=== PATIENT | male | born 1940 | race Caucasian/White ===

== ENCOUNTER 2017-10-18 15:18 | Inpatient (IN) ==
--- NOTE | 2017-10-18 16:14 | XRay Report ---
Indication: SOA, low SpO2 PROCEDURE: XR chest 1V: Encounter: Initial Comparison: Radiographs from earlier today at 1342 Findings: Pulmonary edema is again noted with interstitial prominence and small bilateral pleural effusions. Hazy bilateral mid to lower lung zone infiltrates are again noted without significant change. No pneumothorax. Cardiac silhouette remains enlarged but unchanged. Mediastinal contours are stable. Left pacemaker and prior CABG. Impression: Moderate pulmonary edema, likely due to CHF. .
--- NOTE | 2017-10-18 16:23 | Emergency Department Report ---
SOB HPI - General Chief Complaint: Shortness of Breath/Dyspnea <Jason Ospina Q - 10/24/17 14:14 > Stated Complaint: Difficulty breathing <Jason Ospina Q - 10/24/17 14:14> Source: patient <Debra Khan 10/18/17 16:25> Mode of arrival: EMS <Debra Khan 10/18/17 16:25> Limitations: no limitations <Debra Khan 10/18/17 16:25> - History of Present Illness PT presents with a complaint of SOA which he has had for about 5 days. Pt was at his PCP to be seen for his current complaint when it was discovered he had SpO2 in the 80s. Pt was transported per EMS to the ER. PT has had a mild cough. He denies fever, fatigue, N/V/D, or leg swelling. He does have a cardiac history and last saw his manager surgery in June. <Debra Khan 10/18/17 16:25> MD Complaint: shortness of breath, cough <Debra Khan 10/18/17 16:25> Associated symptoms: cough <Debra Khan 10/18/17 16:25> - Related Data Home oxygen amount: none <Debra Khan 10/18/17 16:25> Home Medications Medication Instructions Recorded Confirmed Aspirin [ASA] 325 mg PO DAILY 10/18/17 10/18/17 Atorvastatin [Lipitor] 40 mg PO HS 10/18/17 10/18/17 Folic Acid 0.4 mg PO DAILY 10/18/17 10/18/17 GlipiZIDE [Glucotrol] 10 mg PO BID 10/18/17 10/18/17 Metformin [Glucophage] 500 mg PO BID 10/18/17 10/18/17 Terbinafine Tab [LamISIL] 250 mg PO DAILY 10/18/17 10/18/17 Previous Rx's Medication Instructions Recorded Amiodarone [Pacerone] 200 mg PO BID tab 10/21/17 Bumetanide Tab [Bumex 1 mg Tab] 1 mg PO [id number] tab 10/21/17 Carvedilol [Coreg] 6.25 mg PO BIDWM tab 10/21/17 Lisinopril [Prinivil] 5 mg PO DAILY tab 10/21/17 Metformin [Glucophage] 1,000 mg PO WS tab 10/21/17 Metformin [Glucophage] 1,000 mg PO WS #0 10/21/17 Metformin [Glucophage] 500 mg PO 0800,2100 tab 10/21/17 Morphine Sulfate Inj 2 - 4 mg IVP Q5M PRN syringe 10/21/17 Nitroglycerin [Nitrostat] 0.4 mg SL Q5MIN3 PRN tab 10/21/17 Spironolactone [Aldactone 25 mg] 25 mg PO [id number] tab 10/21/17 <Jason Ospina Q - 10/24/17 14:14> Allergies Allergy/AdvReac Type Severity Reaction Status Date / Time No Known Allergies Allergy Verified 10/18/17 13:21 <Jason Ospina Q - 10/24/17 14:14> Review of Systems All systems: reviewed and negative except as stated <Debra Khan 16:25> Constitutional: Reports: as per HPI <Debra Khan 10/18/17 16:25> Cardiovascular: Reports: as per HPI <Debra Khan 10/18/17 16:25> Respiratory: Reports: as per HPI <Debra Khan 10/18/17 16:25> Gastrointestinal: Reports: as per HPI <Debra Khan 10/18/17 16:25> Musculoskeletal: Reports: as per HPI <Debra Khan 10/18/17 16:25> Neurological: Reports: as per HPI <Debra Khan 10/18/17 16:25> [facility] Patient Stated Medical History Cataracts Yes Diabetes Mellitus Type 2 Yes Shingles Yes Clinic Medical History (Last Updated 10/18/17 @ 18:08 by Winnie Vargas APRN) Coronary artery disease (Acute Medical) Diabetes (Chronic Medical) Hyperlipidemia (Chronic Medical) Hypertension (Chronic Medical) <Jason Ospina Q - 10/24/17 14:14> Patient Stated Medical History Cataracts Yes Diabetes Mellitus Type 2 Yes Shingles Yes Clinic Medical History (Last Reviewed 10/18/17 @ 13:22 by ALEJANDRO Naylor) Diabetes (Chronic Medical) Hyperlipidemia (Chronic Medical) Hypertension (Chronic Medical) <Debra Khan 10/18/17 16:25> Surgical History: BY-PASS GRAFTS-2004. PACEMAKER-2013 <Debra Khan 10/18/17 16:25> Family History: Family History (Last Reviewed 10/18/17 @ 13:22 by ALEJANDRO Naylor) Mother Lymphoma Father Cancer of colon Brother Leukemia Maternal Uncle Diabetes <Jason Ospina Q - 10/24/17 14:14> Family History (Last Reviewed 10/18/17 @ 13:22 by ALEJANDRO Naylor) Mother Lymphoma Father Cancer of colon Brother Leukemia Maternal Uncle Diabetes <Debra Khan 10/18/17 16:25> - Social History Smoking status: Never smoker <Debra Khan 10/18/17 16:25> Substance use type: does not use <Debra Khan 10/18/17 16:25> Alcohol intake frequency: holidays/special occasions only <Debra Khan 10/18/17 16:25> Current occupational status: retired <Debra Khan 10/18/17 16:25> Physical Exam - Limitations Limitations: no limitations <Debra Khan 10/18/17 16:25> - General General appearance: alert, in no apparent distress <Debra Khan 10/18 16:25> - Normal Exams: Head:: Normocephalic without trauma <Debra Khan 10/18/17 16:25> Eyes:: Pupils are PERRLA w/ EOMI <Debra Khan 10/18/17 16:25> Neck:: Full range of motion, without adenopathy <Debra Khan 16:25> Cardiovascular:: Regular rate and rhythm, without murmur or gallop, Pulses 2+ all extremities, capillary refill, <2 seconds all extremities <Debra Khan 10/18/17 16:25> Abdomen:: Bowel sounds positive, soft, non-tender (slightly distended) < ErinDebra Monisha 10/18/17 16:25> Musculoskeletal:: No tenderness, or deformity noted, good range of motion, all extremities <Debra Khan 10/18/17 16:25> Integumentary:: No rashes <Debra Khan Monisha 10/18/17 16:25> Neurological:: Patient is alert, and oriented, cranial nerves, motor/sensory/ cerebellar, exams w/o gross deficits, to observation <Debra Khan 16:25> Psychiatric:: Patient exhibits, appropriate attention, emotion and affect < Debra Khan 10/18/17 16:25> - Expanded Respiratory Exam Location: Left: decreased breath sounds, Right: decreased breath sounds, Lower: decreased breath sounds <Debra Khan 10/18/17 16:25> Course Vital Signs Temperature 98.4 F 10/18/17 15:20 Pulse Rate 72 10/18/17 15:20 Respiratory Rate 36 H 10/18/17 15:20 Blood Pressure 175/82 H 10/18/17 15:20 Pulse Oximetry 93 10/18/17 15:20 Temperature 98.1 F 10/21/17 16:00 Pulse Rate 61 10/21/17 16:45 Respiratory Rate 21 10/21/17 16:45 Blood Pressure 135/63 10/21/17 16:00 Pulse Oximetry 94 10/21/17 16:45 <Jason Ospina Q - 10/24/17 14:14> Vital Signs Temperature 98.4 F 10/18/17 15:20 Pulse Rate 72 10/18/17 15:20 Respiratory Rate 36 H 10/18/17 15:20 Blood Pressure 175/82 H 10/18/17 15:20 Pulse Oximetry 93 10/18/17 15:20 Temperature 98.4 F 10/18/17 15:20 Pulse Rate 72 10/18/17 16:09 Respiratory Rate 29 H 10/18/17 16:09 Blood Pressure 175/82 H 10/18/17 16:09 Pulse Oximetry 91 10/18/17 16:09 <Debra Khan 10/18/17 16:25> Shortness of Breath/Dyspnea - MDM Narrative Medical decision making narrative: PT maintains SpO2 in the low 90s on 6l per nc. X ray reveals pulmonary edema, 40 mg Lasix IV provided. Although pt is a diabetic and has an extensive cardiac history he denies any history of CHF and there are no diuretics noted in pt home meds. Once all diagnostics resulted hospitalist called and will admit for CHF exacerbation. <Debra Khan Monisha - 10/22/17 16:52> - Differential Diagnosis Likely: acute exacerbation of chronic obstructive airways disease, congestive heart failure, community acquired pneumonia, asthma with exacerbation < Debra Khan Monisha - 10/18/17 16:25> - Lab Data Attestation: I reviewed the patient's lab results. <Debra Khan Monisha - 10/18 17:08> Result diagrams: 10/18/17 16:12 10/21/17 04:28 <Jason Ospina - 10/24/17 14:14> Lab Results 10/18/17 10/18/17 Range/Units 16:12 16:12 WBC 9.0 (4.5-11.0) T/MM3 RBC 4.59 (4.50-5.90) M/MM3 Hgb 15.3 (13.5-17.5) GM/DL Hct 45.6 (41-53) % MCV 99.3 (80-100) UM3 MCH 33.3 (26-34) UUG MCHC 33.6 (31-37) GM/DL RDW Std Deviation 48.9 (36.9-50.2) FL Plt Count 208 (130-400) T/MM3 MPV 10.7 (9.4-12.4) UM3 Immature Gran % (Auto) 0.2 (0.0-0.5) % Neut % (Auto) 74.1 H (33-66) % Lymph % (Auto) 16.1 L (23-45) % [place] % (Auto) 7.3 (0-9.0) % Eos % (Auto) 2.0 (0-4) % Baso % (Auto) 0.3 (0-2) % Neut # (Auto) 6.7 (1.8-7.7) T/MM3 Lymph # (Auto) 1.5 (1-4.8) T/MM3 [place] # (Auto) 0.7 (0-0.8) T/MM3 Eos # (Auto) 0.2 (0-0.5) T/MM3 Baso # (Auto) 0.0 (0-0.2) T/MM3 Abs Immat Gran (auto) 0.02 (0.00-0.03) T/MM3 Turbidity < 20 (0-20) Sodium 143 (134-144) MEQ/L Potassium 4.5 (3.6-5) MEQ/L Chloride 103 (98-107) MEQ/L Carbon Dioxide 26 (22-30) MEQ/L Anion Gap 14 (5-15) meq/L BUN 23.0 H (9-20) MG/DL Creatinine 0.7 L (0.8-1.5) mg/dL GFR Calculation 110 BUN/Creatinine Ratio 33 H (6-26) RATIO Glucose 158 H (75-110) MG/DL Calculated Osmolality 282 H (261-280) MOSM/KG Calcium 9.6 (8.4-10.2) MG/DL Total Bilirubin 0.90 (0.20-1.30) MG/DL Conjugated Bilirubin 0.00 (0.00-0.30) mg/dL Unconjugated Bilirubin 0.50 (0.00-1.1) mg/dL Icterus Index < 2 (0-7) AST 21 (17-59) U/L ALT 19 (1-50) U/L Alkaline Phosphatase 56 (38-126) U/L Troponin I < 0.012 (0-0.12) ng/ml NT-Pro-B Natriuret Pep 4480 H (0-175) pg/mL Total Protein 7.5 (6.3-8.2) g/dL Albumin 4.4 (3.5-5.0) g/dL Globulin 3.1 (2.4-3.6) G/DL Albumin/Globulin Ratio 1.4 (1.1-2.2) RATIO Specimen Hemolysis < 15 (0-25) <Jason Ospina Q - 10/24/17 14:14> Lab Results 10/18/17 Range/Units 16:12 WBC 9.0 (4.5-11.0) T/MM3 RBC 4.59 (4.50-5.90) M/MM3 Hgb 15.3 (13.5-17.5) GM/DL Hct 45.6 (41-53) % MCV 99.3 (80-100) UM3 MCH 33.3 (26-34) UUG MCHC 33.6 (31-37) GM/DL RDW Std Deviation 48.9 (36.9-50.2) FL Plt Count 208 (130-400) T/MM3 MPV 10.7 (9.4-12.4) UM3 Immature Gran % (Auto) 0.2 (0.0-0.5) % Neut % (Auto) 74.1 H (33-66) % Lymph % (Auto) 16.1 L (23-45) % [place] % (Auto) 7.3 (0-9.0) % Eos % (Auto) 2.0 (0-4) % Baso % (Auto) 0.3 (0-2) % Neut # (Auto) 6.7 (1.8-7.7) T/MM3 Lymph # (Auto) 1.5 (1-4.8) T/MM3 [place] # (Auto) 0.7 (0-0.8) T/MM3 Eos # (Auto) 0.2 (0-0.5) T/MM3 Baso # (Auto) 0.0 (0-0.2) T/MM3 Abs Immat Gran (auto) 0.02 (0.00-0.03) T/MM3 <Debra Khan 10/18/17 16:25> - Radiology Data Attestation: I reviewed the patient's radiology results. (read per Dr Willis) < Debra Khan 10/18/17 17:08> - EKG Data EKG #1 EKG attestation: Yes: I reviewed and interpreted this EKG. <Jason Ospina - 10/24/17 14:14> Yes: I reviewed and interpreted this EKG. <Debra Khan 10/18/17 17:08> EKG shows normal: sinus rhythm <Debra Khan 10/18/17 17:08> Rate: normal <Jason Ospina - 10/24/17 14:14> Rhythm: PVC's <Debra Khan - 05/29/18 17:08> [place]/QRS: left axis deviation, RBBB <Jason Ospina - 10/24/17 14:14> Interpretation: no acute changes <Jason Ospina 10/24/17 14:14> Disposition Clinical Impression: Congestive heart failure Qualifiers: Heart failure type: unspecified Heart failure chronicity: acute on chronic Qualified Code(s): I50.9 - Heart failure, unspecified <Jason Ospina 10/24/17 14:14> Disposition: 02 To [facility] Acute Care <Jason Ospina 10/24/17 14:14> Condition: Improved <Jason Ospina 10/24/17 14:14> Instructions: <Jason Ospina 10/24/17 14:14> Prescriptions: New Amiodarone [Pacerone] 200 mg PO BID tab Bumetanide Tab [Bumex 1 mg Tab] 1 mg PO [id number] tab Carvedilol [Coreg] 6.25 mg PO BIDWM tab Lisinopril [Prinivil] 5 mg PO DAILY tab Metformin [Glucophage] 1,000 mg PO WS tab Metformin [Glucophage] 500 mg PO 0800,2100 tab Nitroglycerin [Nitrostat] 0.4 mg SL Q5MIN3 PRN tab PRN Reason: Angina Spironolactone [Aldactone 25 mg] 25 mg PO [id number] tab Morphine Sulfate Inj 2 - 4 mg IVP Q5M PRN syringe PRN Reason: Angina Continue GlipiZIDE [Glucotrol] 10 mg PO BID Atorvastatin [Lipitor] 40 mg PO HS Aspirin [ASA] 325 mg PO DAILY Folic Acid 0.4 mg PO DAILY Terbinafine Tab [LamISIL] 250 mg PO DAILY Metformin [Glucophage] 1,000 mg PO WS #0 Discontinued Sotalol [Betapace] 80 mg PO BID Amlodipine [Norvasc] 10 mg PO DAILY Ramipril 10 mg PO DAILY No Action Metformin [Glucophage] 500 mg PO BID <Jason Ospina - 10/24/17 14:14> Referrals: Miguel Judd DO [Primary Care Provider] - <Jason Ospina Q - 09/07 14:14> Forms: <Jason Ospina 10/24/17 14:14> Time of Disposition: 17:08 <Debra Khan 10/18/17 17:08> - Seen By: midlevel <Debra Khan 10/18/17 17:08>
[2017-10-18] MEDS ORDERED: FUROSEMIDE 20 MG/2 ML INJECTION IVP ONE (16:27)
[2017-10-18] MEDS: SALINE FLUSH 10ml SYRINGE IVF PRN (17:03)
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
[2017-10-18 18:38] VITALS: BMI 31.0
[2017-10-18] MEDS: METFORMIN 1,000 MG TABLET PO SCH (19:17)
[2017-10-18] MEDS ORDERED: GlipiZIDE 5 MG TABLET PO SCH (21:00)
[2017-10-18] MEDS ORDERED: SOTALOL 80 MG TABLET PO SCH (21:00)
[2017-10-18] MEDS: ATORVASTATIN 40 MG TABLET PO SCH (21:39)
[2017-10-18] MEDS: SOTALOL 80 MG TABLET PO SCH (21:40)
[2017-10-18] MEDS: METFORMIN 500 MG TABLET PO SCH (21:40)
[2017-10-18] MEDS: SERTRALINE 25 MG TABLET PO SCH (21:41)
[2017-10-19] MEDS ORDERED: MAGNESIUM SULFATE 1gm PREMIX 1 GM/100 ML BAG IV ONE (05:44)
[2017-10-19] MEDS: FUROSEMIDE 40 MG/4 ML INJECTION IVP SCH ×2 (06:28→15:43)
[2017-10-19] MEDS: SOTALOL 80 MG TABLET PO SCH ×3 (07:34→17:38)
[2017-10-19] MEDS: FOLIC ACID 1 MG TABLET PO SCH (08:37)
[2017-10-19] MEDS: TERBINAFINE 250 MG TABLET PO SCH (08:37)
[2017-10-19] MEDS: GlipiZIDE 5 MG TABLET PO SCH ×2 (08:37→11:38)
[2017-10-19] MEDS: ASPIRIN 325 MG TABLET PO SCH (08:37)
[2017-10-19] MEDS: METFORMIN 500 MG TABLET PO SCH ×2 (08:38→21:43)
[2017-10-19] MEDS: SERTRALINE 25 MG TABLET PO SCH ×2 (08:38→21:44)
[2017-10-19] MEDS ORDERED: AMLODIPINE 10 MG TABLET PO SCH (09:00)
--- NOTE | 2017-10-19 16:37 | Progress Note ---
- Date 10/19/17 Subjective: Pt reports his breathing is better. Denies any cp, n/v/d, f/c. Denies any dizziness or palpitations. Objective Vital signs: Temperature 95.9 F L 10/19/17 14:57 Pulse Rate 65 10/19/17 14:57 Respiratory Rate 18 10/19/17 14:57 Blood Pressure 177/92 H 10/19/17 14:57 Pulse Oximetry 92 10/19/17 14:57 Height/Weight/BMI: Height 5 ft 10 in Weight 92.4 kg Body Mass Index 31.0 - Constitutional Present: no acute distress - Routine HEENT Exam Head: Present: normocephalic, atraumatic Eye: Present: EOMI - Routine Respiratory Exam Present: dyspnea, crackles - Routine Cardiovascular Exam Present: RRR, no murmur - Routine Abdominal Exam Present: soft, non distended, non tender - Routine Extremities Exam Present: edema. Absent: cyanosis, clubbing - Routine Skin Exam Present: intact, dry. Absent: erythema - Routine Neurological Exam Present: alert, oriented X3 - Routine Psychiatric Exam Present: normal affect Results - Labs CBC & Chem 7: 10/18/17 16:12 10/19/17 14:45 Assessment and Plan Assessment and Plan: CHF -New onset? -Lasix 40 mg IV BID; follow electrolytes/renal function -daily weights, I/O's, fluid restriction, tele -trop neg, echo in am (Dr. Walker to read) -cont sotalol - has pacemaker -[employer] Hypoxia Resp. failure -2/2 to CHF -O2 as needed dyslipidemia/HTN -cont statin -may want to lower amlodipine dose in bebeto of staring iza-i given new-onset CHF DM2 -repeat A1c -trend sugars; check UA for proteinuria -cont metformin & glipizide -cardiac consistent carb diet Sustained Vtach -Pt stable and asymptomatic -Check electrolytes, order trop, discussed case with , moved pt to ICU Ppx -Scds Advanced directives -DPOA - thought to be his daughter -code status: DNR - Physician Narrative Narrative: Date: 10/19/17 Time: 1623 Hospital Course Summary Disclaimer: The visit summary below is not to be considered part of the above Progress Note. Hospital Course: 10/18/17 Admit, inpatient status. PCP: Dr. Judd CV: Believed to be Dr. Regalado CHF -Lasix 40 mg IV BID; follow electrolytes/renal function -daily weights, tele -trend trop -echo in am (Dr. Walker to read) -cont sotalol - has pacemaker Hypoxia -O2 -wean as able dyslipidemia/HTN -cont statin -may want to lower amlodipine dose in bebeto of staring iza-i given new-onset CHF DM2 -repeat A1c -trend sugars; check UA for proteinuria -cont metformin & glipizide -cardiac consistent carb diet Advanced directives -DPOA - thought to be his daughter -code status: DNR
[2017-10-19] MEDS ORDERED: METFORMIN 1,000 MG TABLET PO SCH (17:30)
[2017-10-19] MEDS: METFORMIN 1,000 MG TABLET PO SCH (17:38)
--- NOTE | 2017-10-19 20:40 | Cardiology Consult Note ---
History of Present Illness Consult reason: shortness of breath History of present illness: Paolo Juarez is a 77 y/o male who describes a 4-5 day hx of SOA with exertion. 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 He's had some wheezing and a cough but denies any other symptoms such as chest pain, nausea, dizziness/ lightheadedness. He has not had any recent illnesses, fevers, cough/cold, abdominal or GI/ complaints. He didn't even notice that his legs were swelling until he saw his PCP Dr. Judd for his SOA on 10/18/17. There, O2 sats were reportedly in the 80s and Dr. Judd recommended for him to go to the ED for evaluation. CXR showed moderate pulmonary edema and proBNP was elevated at 4480. Troponin was negative. He was placed on oxygen and was given furosemide 40 mg IV with good results. Dr. Melgoza was contacted and the patient was admitted to inpatient status Patient presented with a five-day history of progressive dyspnea on exertion mild activity lower extremity edema orthopnea PND now felt much better after diuresis about 13 pounds. He denies prior history of CHF and no heart catheter since his CABG in 2003. History of dysrhythmia appears to be atrial fibrillation , was taken off blood thinners several years ago and placed on aspirin instead. Wide complex tachycardia frequent runs strips available to me are about 20 secs long , at a rate of about 140-160 beats per minutes. Patient had reportedly a 30 sec run of VT. Remained asymptomatic without palpitations or dizziness. Frequent Runs of VT, mostly long nonsustained occurred at rest but worse with activity. Nurses report from last night: PT HAS SLEPT WELL THIS SHIFT. AT APPROX 0330 PT HAD A 7 RUN OF V-TACH. PT STATES HE HAD BEEN UP TO BATHROOM BUT "I FEEL FINE, LIKE I SHOULD JUST GO HOME" . TIGER TEXT DR. GUERRERO AND NOTIFIED HIM OF V-TACH. NEW ORDER OF MAG LAB IN AM AND MAKE SURE HE IS GETTING A BMP, Patient denies palpitations chest pain dizziness or syncope. Review of Systems All systems PM: 10-point ROS was reviewed, no additional remarkable complaints except PFSH Patient Stated Medical History Cataracts Yes Diabetes Mellitus Type 2 Yes Shingles Yes Clinic Medical History (Last Updated 10/18/17 @ 18:08 by Winnie Vargas APRN) Coronary artery disease (Acute Medical) Diabetes (Chronic Medical) Hyperlipidemia (Chronic Medical) Hypertension (Chronic Medical) Surgical History: BYPASS GRAFTS-2003. 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 Medications Home Medications Medication Instructions Recorded Confirmed Type Amlodipine [Norvasc] 10 mg PO DAILY 10/18/17 10/18/17 History Aspirin [ASA] 325 mg PO DAILY 10/18/17 10/18/17 History Atorvastatin [Lipitor] 40 mg PO HS 10/18/17 10/18/17 History Folic Acid 0.4 mg PO DAILY 10/18/17 10/18/17 History GlipiZIDE [Glucotrol] 10 mg PO BID 10/18/17 10/18/17 History Metformin [Glucophage] 1,000 mg PO WS 10/18/17 10/18/17 History Metformin [Glucophage] 500 mg PO BID 10/18/17 10/18/17 History Sertraline [Zoloft] 25 mg PO BID 10/18/17 10/18/17 History Sotalol [Betapace] 80 mg PO BID 10/18/17 10/18/17 History Terbinafine Tab [LamISIL] 250 mg PO DAILY 10/18/17 10/18/17 History Ramipril 10 mg PO DAILY 10/20/17 10/20/17 History Allergies Allergy/AdvReac Type Severity Reaction Status Date / Time No Known Allergies Allergy Verified 10/18/17 13:21 Exam Vital signs: Temperature 97.3 F 10/19/17 16:03 Pulse Rate 61 10/19/17 19:15 Respiratory Rate 25 H 10/19/17 19:15 Blood Pressure 160/74 H 10/19/17 19:15 Pulse Oximetry 94 10/19/17 19:15 - Constitutional no acute distress - Routine HEENT Exam Head: Present: normocephalic, atraumatic Eye: Present: EOMI, PERRL ENT: Present: mucous membranes moist - Routine Neck Exam Present: JVD (JVP is not well seen, external jugular veins are dilated), carotid bruit (bilaterally versus radiated murmur). Absent: lymphadenopathy, thyromegaly - Routine Respiratory Exam Present: CTA bilaterally - Routine Cardiovascular Exam Present: RRR, murmur (3/6 murmur). Absent: bradycardia, tachycardia - Routine Abdominal Exam Present: soft, normoactive bowel sounds, non distended, non tender. Absent: organomegaly, mass - Routine Extremities Exam Present: edema (1+ bilateral ankles), pulses intact (3+ throughout), normal capillary refill. Absent: cyanosis, clubbing - Routine Skin Exam Present: intact, dry, warm. Absent: cyanosis, erythema - Routine Neurological Exam Present: alert, oriented X3, CN II-XII intact, moving all extremities, vision grossly intact, hearing grossly intact, normal speech. Absent: motor deficit, altered mental status, hemineglect, facial asymmetry - Routine Psychiatric Exam Present: normal affect, normal thought process, cooperative Results 10/18/17 16:12 10/20/17 07:15 Cardiac Enzymes 10/19/17 10/19/17 Range/Units 05:11 16:01 Troponin I 0.018 0.016 (0-0.12) ng/ml Comprehensive Metabolic Panel 10/19/17 10/19/17 Range/Units 05:11 14:45 Sodium 142 143 (134-144) MEQ/L Potassium 3.8 4.2 (3.6-5) MEQ/L Chloride 103 101 (98-107) MEQ/L Carbon Dioxide 28 28 (22-30) MEQ/L BUN 17.0 19.0 (9-20) MG/DL Creatinine 0.6 L 0.8 D (0.8-1.5) mg/dL Glucose 121 H 135 H (75-110) MG/DL Calcium 9.1 9.4 (8.4-10.2) MG/DL Albumin 4.1 (3.5-5.0) g/dL Intake and Output 10/19/17 10/19/17 10/19/17 06:59 14:59 22:59 Intake Total 100 / 100 700 / 700 Output Total 1525 / 1525 1600 / 1600 1050 / 1050 Balance -1425 / -1425 -900 / -900 -1050 / -1050 Intake: IV 100 / 100 MAGNESIUM SULFATE 1gm PREMIX 1 100 / 100 gm In 100 ml @ 100 mls/hr IV O ONE Rx#:[id number] Oral 100 / 100 600 / 600 Output: Urine 1525 / 1525 1600 / 1600 1050 / 1050 Other: Urine Appearance Clear Clear Clear Urine Color Yellow Yellow Pale Yellow Urine Odor Normal # Voids 2 Weight 92.4 kg Patient Weight 10/20/17 06:59 Weight 92.4 kg - Imaging and Cardiology Echo: image reviewed EKG results: image reviewed - EKG Interpretation EKG: no acute changes, not changed from: (notchangedfromadmissionEKG, sinus rhythm/atrial paced, demand V paced maker, underlying RBBB with axis deviation nurse agree AV block. Diffuse T-wave abnormality/inversion more prominent in precordial and lateral leads without progressive/dynamic changes on serial EKGs) EKG interpretations - EKG EKG results cardiology: not changed from: (admission EKG, QT corrected 498 ms) Assessment and Plan - Assessment and Plan VT Pulmonary edema, new onset Significant aortic valve stenosis CAD status post CABG DM 2 Hypertension Hyperlipidemia permanent pacemaker in place History of dysrhythmia? A. 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 DC sotalol due to pulmonary edema Start amiodarone instead If VT sustained may start IV amiodarone and IV metoprolol Start by mouth carvedilol Pacemaker interrogation ordered and performed, will ask [employer] rep to come in to reprogram and lower detection rate DAKOTA and right and left heart catheterization, once pulmonary edema improved, to examine aortic stenosis and coronary anatomy and graft patency benefits discussed with the patient Will likely need TAVR procedure Discussed with the patient briefly consideration of addition of LV/CS lead to high percentage of RV pacing and the presence of LV systolic dysfunction Serial troponins ordered as discussed with you echocardiogram reviewed Thank you for your consultation Hospital Course Summary Disclaimer: The visit summary below is not to be considered part of the above Progress Note. Hospital Course: 10/18/17 Admit, inpatient status. PCP: Dr. Judd CV: Believed to be Dr. Regalado CHF -Lasix 40 mg IV BID; follow electrolytes/renal function -daily weights, tele -trend trop -echo in am (Dr. Walker to read) -cont sotalol - has pacemaker Hypoxia -O2 -wean as able dyslipidemia/HTN -cont statin -may want to lower amlodipine dose in bebeto of staring iza-i given new-onset CHF DM2 -repeat A1c -trend sugars; check UA for proteinuria -cont metformin & glipizide -cardiac consistent carb diet Advanced directives -DPOA - thought to be his daughter -code status: DNR
[2017-10-19] MEDS: ATORVASTATIN 40 MG TABLET PO SCH (21:43)
[2017-10-20] MEDS: SALINE FLUSH 10ml SYRINGE IVF PRN ×2 (05:05→22:46)
[2017-10-20] MEDS: FUROSEMIDE 40 MG/4 ML INJECTION IVP SCH ×2 (05:05→17:12)
[2017-10-20] MEDS: FOLIC ACID 1 MG TABLET PO SCH (08:43)
[2017-10-20] MEDS: TERBINAFINE 250 MG TABLET PO SCH (08:43)
[2017-10-20] MEDS: ASPIRIN 325 MG TABLET PO SCH (08:43)
[2017-10-20] MEDS: CARVEDILOL 6.25 MG TABLET PO SCH ×2 (08:44→18:00)
[2017-10-20] MEDS: AMIODARONE 200 MG TABLET PO SCH ×2 (08:45→22:07)
[2017-10-20] MEDS: GlipiZIDE 5 MG TABLET PO SCH ×2 (08:45→12:10)
[2017-10-20] MEDS: METFORMIN 500 MG TABLET PO SCH (08:45)
--- NOTE | 2017-10-20 09:35 | XRay Report ---
Indication: Pulmonary Edema PROCEDURE: XR chest 1V: Encounter: Initial Comparison: October 18, 2017 Findings: Interval improvement in pulmonary edema with a mild amount remaining. Decreasing pleural effusions. Improving aeration of the lower lobes. No pneumothorax. Heart size and mediastinal contours are stable. Prior CABG. Left pacemaker. Impression: Improving pulmonary edema. .
--- NOTE | 2017-10-20 11:52 | Progress Note ---
- Date 10/20/17 Subjective: Pt doing better, reports sob is improved and denies any cp, n/v/d, f/c. O2 requirements are down to 1-2L currently. Pt had sustained Vtach which lasted for a little over 30 seconds yesterday afternoon but pt was asymptomatic and hemodynamically stable. Pt reports feeling good overall. Objective Vital signs: Temperature 98.2 F 10/20/17 07:50 Pulse Rate 61 10/20/17 06:01 Respiratory Rate 14 10/20/17 06:01 Blood Pressure 154/77 H 10/20/17 06:01 Pulse Oximetry 94 10/20/17 06:01 Height/Weight/BMI: Height 5 ft 10 in Weight 88.9 kg Body Mass Index 31.0 - Constitutional Present: no acute distress - Routine HEENT Exam Head: Present: normocephalic, atraumatic Eye: Present: EOMI ENT: Present: mucous membranes moist - Routine Respiratory Exam Present: CTA bilaterally. Absent: wheezes, crackles - Routine Cardiovascular Exam Present: RRR, no murmur - Routine Abdominal Exam Present: soft, non distended, non tender - Routine Extremities Exam Present: edema. Absent: cyanosis, clubbing - Routine Skin Exam Present: intact, dry. Absent: erythema - Routine Neurological Exam Present: alert, oriented X3 - Routine Psychiatric Exam Present: normal affect, normal thought process Results - Labs CBC & Chem 7: 10/18/17 16:12 10/20/17 07:15 Assessment and Plan Assessment and Plan: CHF exacerbation -New onset? -Lasix 40 mg IV BID; follow electrolytes/renal function -daily weights, I/O's, fluid restriction, tele -trop neg, BNP ~4500, echo report pending (Dr. Walker to read) - d/c'd Sotalol, currently on amio, BB -Registered Phlebotomist Part Time , will need to touch base soon Hypoxia Resp. failure -2/2 to CHF, much improved -CXR shows improvement, O2 requirement down, cont. to wean dyslipidemia/HTN -cont statin -may want to lower amlodipine dose in bebeto of staring iza-i given new-onset CHF DM2 -A1c 7.4 -trend sugars, UA shows no proteinuria -cont metformin & glipizide -cardiac consistent carb diet Sustained Vtach Episode -Around 30 sec on 10/19 -Pt was stable and asymptomatic -Electrolytes wnls, trop neg, moved pt to ICU as a precaution -Consulted , did pacemaker interrogation Ppx -Scds Advanced directives -DPOA - thought to be his daughter -code status: DNR - Physician Narrative Narrative: Date: 10/20/17 Time: 1144 Hospital Course Summary Disclaimer: The visit summary below is not to be considered part of the above Progress Note. Hospital Course: 10/20/17 CHF improving, cont. diuretics, will help with Vtach episode.
[2017-10-20] MEDS: SERTRALINE 25 MG TABLET PO SCH ×2 (12:15→22:11)
[2017-10-20] MEDS: METFORMIN 1,000 MG TABLET PO SCH (18:00)
--- NOTE | 2017-10-20 18:46 | Echocardiogram ---
DATE OF STUDY 10/19/2017 INDICATIONS New-onset CHF. TECHNICAL QUALITY Technically fair 2D, M-mode, Doppler echocardiographic images were submitted for interpretation. The apical windows are particularly more challenging. FINDINGS 1. CARDIAC CHAMBERS: The left atrium is mildly enlarged, measuring 4.2 cm. Right ventricle appears to be upper-normal range in size. The left ventricular measurement of 5.2 cm still falls within the upper-normal range. Aortic root diameter is normal. 2. LEFT VENTRICLE: Wall thickness is upper-normal range, measuring 10 mm in the posterior wall and 11 mm in the septal wall. Wall motion analysis is abnormal due to septal hypokinesis. LV systolic dysfunction of a mild degree is present. Ejection fraction is visually estimated at about 45%. Diastolic function assessment shows equalization of E and A waves. 3. VALVES: Aortic valve exhibits moderate calcification. Valve opening is restricted to a moderately severe degree. Mitral valve exhibits annular calcification. The anterior leaflet is moderately thickened and calcified. Valve opening is nevertheless preserved. Tricuspid valve structure and motion appear normal. Normal valve excursion. Pacemaker leads are seen in the right heart and appear to be unremarkable. 4. DOPPLER: Trace mitral regurgitation. Trace tricuspid regurgitation. Aortic stenosis is present. Peak flow velocity of 3.2 m/sec compared with 1.2 m /sec at the LVOT level. Peak and mean pressure gradient measures 41 and 23 mmHg. The calculated aortic valve area appears to be far from accurate. The aortic valve area by direct planimetry measures 1.1 cm2. There is also trivial pulmonic insufficiency present. 5. Systolic pulmonary artery pressure is estimated to be 25 mmHg. Central venous pressure is estimated to be normal. 6. No significant pericardial effusion, intracardiac masses, thrombi, vegetations or shunts. IMPRESSION 1. Mild left atrial enlargement. 2. Borderline concentric LVH. 3. Mild LV systolic dysfunction. EF estimated at 45%. 4. Moderately severe calcific aortic valve stenosis. 5. Calcified anterior mitral valve leaflet without significant valvular dysfunction. 6. Normal central venous pressure. Normal systolic PA pressure. 7. Dysrhythmia is present. MTDD
--- NOTE | 2017-10-20 18:51 | Cardiology Progress Note ---
Subjective Interval history: Mr. Juarez had a restful night. Coring to his nurse, when he gets up for bathing zier restroom. Gets a run of nonsustained VT longus was about 20 s. But remained entirely asymptomatic without palpitations or dizziness. Nurse noticed mild shortness of breath on exertion such as walking in the room, but patient denies any dyspnea or chest pain. Patient continued to diurese quite well and he is now able to lie down flat in bed. Unclear why the patient had an increased oxygen requirement nitroglycerin reported up to 8-9 liters as he is down to 1-2 L today and diuresed well about the 2 kg down on his weight and his chest chest x-ray shows only mild pulmonary congestion and fluid in the fissure. Telemetry strips reviewed in detail. I&O's weight labs and telemetry reviewed in detail. Amiodarone and Coreg orders were placed yesterday reordered this morning by verbal order to Garcia TURNER. Telemetry mostly shows AV paced rhythm and a paced V sensed with BBB , frequent PVCs in addition to the runs of nonsustained VT that discussed above Pacemaker reprogramming noted with a detection rate in the ventricle and dropped to 145 beats per minutes and stayed at 150 beats preference in the atrium Patient verbalized understanding of the indication alternatives and benefits of DAKOTA and heart catheterization is willing to proceed. Also discussed the patient' s daughter is a nurse practitioner in [place]. Heart catheterization risk and benefits including risk of bleeding [place] stroke or and discussed. I'll make sure the patient's preference as he stays here for this procedure. Also would like to temporarily suspend his DO NOT RESUSCITATE status in the perioperative period for 24 hours following his procedures. Patient verbalized understanding of both issues and he is in agreement, his long-term "girlfriend" is in the room and verbalized the same. Exam Vital signs: Temperature 97.5 F 10/20/17 12:11 Pulse Rate 65 10/20/17 12:00 Respiratory Rate 14 10/20/17 06:01 Blood Pressure 154/77 H 10/20/17 06:01 Pulse Oximetry 94 10/20/17 06:01 Inpatient Medications: Generic Name Dose Route Start Last Admin Trade Name Freq PRN Reason Stop Dose Admin Amiodarone HCl 200 mg 10/20/17 09:00 10/20/17 08:45 Pacerone PO 200 mg BID NOE Administration Aspirin 325 mg 10/19/17 09:00 10/20/17 08:43 Asa PO 325 mg DAILY NOE Administration Atorvastatin Calcium 40 mg 10/18/17 21:00 10/19/17 21:43 Lipitor PO 40 mg HS NOE Administration Carvedilol 6.25 mg 10/20/17 08:00 10/20/17 18:00 Coreg PO 6.25 mg BIDWM NOE Administration Folic Acid 0.5 mg 10/19/17 09:00 10/20/17 08:43 Folate PO 0.5 mg DAILY NOE Administration Furosemide 40 mg 10/19/17 06:00 10/20/17 17:12 Lasix 40 Mg/4 Ml IVP 40 mg 06,15 NOE Administration Glipizide 10 mg 10/19/17 08:30 10/20/17 12:10 Glucotrol PO 10 mg 0830,1130 NOE Administration Sodium Chloride 1,000 mls @ 75 mls/hr 10/21/17 08:00 Normal Saline IV .[id number] NOE Metformin HCl 500 mg 10/18/17 21:00 10/20/17 08:45 Glucophage PO 500 mg 0800,2100 NOE Administration Metformin HCl 1,000 mg 10/18/17 19:30 10/20/17 18:00 Glucophage PO 1,000 mg WS NOE Administration Sertraline HCl 25 mg 10/18/17 21:00 10/20/17 12:15 Zoloft PO Not Given BID NOE Sodium Chloride 10 - 80 ml 10/18/17 15:38 10/20/17 05:05 Iv Flush IVF 10 ml PRN PRN Administration Flushing Terbinafine HCl 250 mg 10/19/17 09:00 10/20/17 08:43 Lamisil PO 250 mg DAILY NOE Administration Discontinued Medications Generic Name Dose Route Start Last Admin Trade Name Freq PRN Reason Stop Dose Admin Amlodipine Besylate 10 mg 10/19/17 09:00 10/19/17 08:37 Norvasc PO 10 mg DAILY NOE Administration Furosemide 40 mg 10/18/17 16:27 10/18/17 16:59 Lasix 20 Mg/2 Ml IVP 10/18/17 16:28 40 mg O ONE Administration Glipizide 10 mg 10/18/17 21:00 Glucotrol PO BID NOE Magnesium Sulfate/Dextrose 1 gm in 100 mls @ 100 mls/hr 10/19/17 05:44 08:16 Mag Sulf 1gm Premix IV 10/19/17 06:43 Infused O ONE Infusion Metformin HCl 1,000 mg 10/19/17 17:30 Glucophage PO WS [facility] Potassium Chloride 10 meq 10/19/17 05:44 10/19/17 06:28 Micro-K 10 Meq Capsule PO 10/19/17 05:45 10 meq O ONE Administration Potassium Chloride 40 meq 10/20/17 12:11 10/20/17 12:24 K-Dur 20 Meq Tablet PO 10/20/17 12:12 40 meq O ONE Administration Sotalol HCl 80 mg 10/18/17 21:00 Betapace PO BID NOE Sotalol HCl 80 mg 10/18/17 19:30 10/19/17 17:38 Betapace PO 80 mg BID NOE Administration - Constitutional no acute distress, other (no orthopnea on exam, when I put his head of the bed down flat) - Routine HEENT Exam Head: Present: normocephalic, atraumatic Eye: Present: EOMI, PERRL ENT: Present: mucous membranes moist - Routine Neck Exam Present: carotid bruit (versus radiated murmur bilaterally), normal carotid upstroke. Absent: JVD, lymphadenopathy, thyromegaly - Routine Cardiovascular Exam Present: murmur (3/6 murmur), irregular rhythm - Routine Abdominal Exam Present: soft, normoactive bowel sounds, non distended, non tender. Absent: organomegaly, mass - Routine Extremities Exam Present: edema (1+ both ankles). Absent: cyanosis, clubbing - Routine Skin Exam Present: intact, dry, warm. Absent: cyanosis, erythema - Routine Neurological Exam Present: alert, oriented X3, CN II-XII intact, moving all extremities, vision grossly intact, hearing grossly intact. Absent: motor deficit, hemineglect, facial asymmetry - Routine Psychiatric Exam Present: normal affect, normal thought process, cooperative, good insight, good judgment. Absent: depressed, anxious Results 10/18/17 16:12 10/20/17 07:15 Comprehensive Metabolic Panel 10/20/17 Range/Units 07:15 Sodium 143 (134-144) MEQ/L Potassium 3.7 (3.6-5) MEQ/L Chloride 100 (98-107) MEQ/L Carbon Dioxide 29 (22-30) MEQ/L BUN 16.0 (9-20) MG/DL Creatinine 0.7 L (0.8-1.5) mg/dL Glucose 127 H (75-110) MG/DL Calcium 9.4 (8.4-10.2) MG/DL Intake and Output 10/20/17 10/20/17 10/20/17 06:59 14:59 22:59 Intake Total 75 / 75 360 / 360 Output Total 1175 / 1175 675 / 675 Balance -1100 / -1100 -315 / -315 Intake: Oral 75 / 75 360 / 360 Output: Urine 1175 / 1175 675 / 675 Other: Urine Appearance Clear Clear Urine Color Yellow Yellow Stool Consistency Soft Formed Size of Bowel Movement Small Weight 88.9 kg Patient Weight 10/21/17 06:59 Weight 88.9 kg - Imaging and Cardiology Echo: report reviewed EKG results: image reviewed - EKG Interpretation EKG: sinus rhythm, no acute changes Assessment and Plan - Assessment and Plan VT Pulmonary edema, new onset Significant aortic valve stenosis CAD status post CABG DM 2 Hypertension Hyperlipidemia permanent pacemaker in place History of dysrhythmia? A. 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 DC sotalol due to pulmonary edema Start amiodarone instead If VT sustained may start IV amiodarone and IV metoprolol Start by mouth carvedilol Pacemaker interrogation performed, [employer] rep lowered detection rate DAKOTA and right and left heart catheterization, once pulmonary edema improved, to examine aortic stenosis and coronary anatomy and graft patency benefits discussed with the patient Will likely need TAVR procedure Discussed with the patient briefly consideration of addition of LV/CS lead to high percentage of RV pacing and the presence of LV systolic dysfunction Patient agrees to temporary suspend DO NOT RESUSCITATE order runs out with the procedures tomorrow, He and his girlfriend also understand up to 1% mortality with a heart catheter due to his significant and CHF. understand the lack of the open heart surgery backup at [facility] Their preference that the procedures be done locally at [facility]. see pre Procedure orders Elected to keep his diuretics the same and simply start patient gentle hydration right before his heart catheter tomorrow Discussed with the patient and RN to limit activity due to his arrhythmia Also asked to prop up the head of the bed at night to help with his nocturnal hypoxemia Patient remains hypertensive and he has CHF and diabetic, will place on lisinopril 5 mg daily Hospital Course Summary Disclaimer: The visit summary below is not to be considered part of the above Progress Note. Hospital Course: 10/18/17 Admit, inpatient status. PCP: Dr. Judd CV: Believed to be Dr. Regalado CHF -Lasix 40 mg IV BID; follow electrolytes/renal function -daily weights, tele -trend trop -echo in am (Dr. Walker to read) -cont sotalol - has pacemaker Hypoxia -O2 -wean as able dyslipidemia/HTN -cont statin -may want to lower amlodipine dose in bebeto of staring iza-i given new-onset CHF DM2 -repeat A1c -trend sugars; check UA for proteinuria -cont metformin & glipizide -cardiac consistent carb diet Advanced directives -DPOA - thought to be his daughter -code status: DNR
[2017-10-20] MEDS ORDERED: LISINOPRIL 10 MG TABLET PO SCH (19:30)
[2017-10-20] MEDS: LISINOPRIL 5 MG TABLET PO SCH (20:09)
[2017-10-20] MEDS: ATORVASTATIN 40 MG TABLET PO SCH (22:07)
[2017-10-21] MEDS: SALINE FLUSH 10ml SYRINGE IVF PRN (05:45)
[2017-10-21] MEDS: FUROSEMIDE 40 MG/4 ML INJECTION IVP SCH (05:45)
[2017-10-21] MEDS ORDERED: SALINE FLUSH 10ml SYRINGE ONE (06:36)
[2017-10-21] MEDS: CARVEDILOL 6.25 MG TABLET PO SCH (07:56)
[2017-10-21] MEDS ORDERED: NS 1,000 ML IV SCH (08:00)
[2017-10-21] MEDS ORDERED: MIDAZOLAM 2mg/2ml INJECTION ONE ×2 (08:01→09:00)
[2017-10-21] MEDS ORDERED: FentaNYL 100 MCG/2 ML INJECTION ONE (08:01)
[2017-10-21] MEDS ORDERED: HEPARIN 1,000 UNITS/500 ML PREMIX (*CVL ONLY*) IV ONE (08:02)
[2017-10-21] MEDS ORDERED: LIDOCAINE 1% (10mg/ml) 30ml SDV INJ ONE (08:02)
[2017-10-21] MEDS: AMIODARONE 200 MG TABLET PO SCH (08:15)
[2017-10-21] MEDS: ASPIRIN 325 MG TABLET PO SCH (08:20)
[2017-10-21] MEDS: LISINOPRIL 5 MG TABLET PO SCH (08:20)
[2017-10-21] MEDS ORDERED: NS 1,000 ML ONE (09:01)
[2017-10-21] MEDS ORDERED: HEPARIN 1,000unit/ml INJECTION 10ml ONE (09:40)
[2017-10-21] MEDS ORDERED: ONDANSETRON 4 MG/2 ML INJECTION IVP PRN (10:03)
[2017-10-21] MEDS ORDERED: BISACODYL 10 MG SUPPOSITORY RECTALLY PRN (10:03)
[2017-10-21] MEDS ORDERED: MORPHINE SULFATE 4mg INJECTION IVP PRN ×2 (10:03)
[2017-10-21] MEDS ORDERED: ATROPINE 1 MG/ML INJECTION IVP PRN (10:03)
[2017-10-21] MEDS ORDERED: MAG-AL + SIM ORAL LIQUID 30ml PO PRN (10:03)
[2017-10-21] MEDS ORDERED: METOCLOPRAMIDE 10mg/2ml INJECTION IVP PRN (10:03)
[2017-10-21] MEDS ORDERED: PROMETHAZINE 25 MG INJECTION IVP PRN (10:03)
[2017-10-21] MEDS ORDERED: LORazepam 0.5 MG TABLET PO PRN (10:03)
[2017-10-21] MEDS ORDERED: NITROGLYCERIN 0.4 MG SUBLINGUAL TABLET SL PRN (10:03)
[2017-10-21] MEDS ORDERED: HYDROCODONE/APAP 7.5 MG/325 MG TABLET PO PRN (10:03)
[2017-10-21] MEDS ORDERED: NS 500 ML IV SCH (10:18)
--- NOTE | 2017-10-21 10:27 | Cardiology Progress Note ---
Subjective Interval history: Mr. Juarez had a restful night. Coring to his nurse, when he gets up for bathing zier restroom. Gets a run of nonsustained VT longus was about 20 s. But remained entirely asymptomatic without palpitations or dizziness. Nurse noticed mild shortness of breath on exertion such as walking in the room, but patient denies any dyspnea or chest pain. Patient continued to diurese quite well and he is now able to lie down flat in bed. Unclear why the patient had an increased oxygen requirement nitroglycerin reported up to 8-9 liters as he is down to 1-2 L today and diuresed well about the 2 kg down on his weight and his chest chest x-ray shows only mild pulmonary congestion and fluid in the fissure. Telemetry strips reviewed in detail. I&O's weight labs and telemetry reviewed in detail. Amiodarone and Coreg orders were placed yesterday reordered this morning by verbal order to Garcia TURNER. Telemetry mostly shows AV paced rhythm and a paced V sensed with BBB , frequent PVCs in addition to the runs of nonsustained VT that discussed above Pacemaker reprogramming noted with a detection rate in the ventricle and dropped to 145 beats per minutes and stayed at 150 beats preference in the atrium Patient verbalized understanding of the indication alternatives and benefits of DAKOTA and heart catheterization is willing to proceed. Also discussed the patient' s daughter is a nurse practitioner in [place]. Heart catheterization risk and benefits including risk of bleeding [place] stroke or and discussed. I'll make sure the patient's preference as he stays here for this procedure. Also would like to temporarily suspend his DO NOT RESUSCITATE status in the perioperative period for 24 hours following his procedures. Patient verbalized understanding of both issues and he is in agreement, his long-term "girlfriend" is in the room and verbalized the same. Exam Vital signs: Temperature 98.4 F 10/21/17 07:15 Pulse Rate 70 10/21/17 08:15 Respiratory Rate 23 10/21/17 08:15 Blood Pressure 147/68 H 10/21/17 08:00 Pulse Oximetry 96 10/21/17 08:15 Inpatient Medications: Generic Name Dose Route Start Last Admin Trade Name Freq PRN Reason Stop Dose Admin Hydrocodone Bitart/Acetaminophen 1 - 2 tab 10/21/17 10:03 [place] 7.5/325 PO Q5H PRN Pain Al Hydroxide/Mg Hydroxide 30 ml 10/21/17 10:03 Maalox Plus PO Q3H PRN Indigestion Amiodarone HCl 200 mg 10/20/17 09:00 10/21/17 08:15 Pacerone PO 200 mg BID NOE Administration Aspirin 325 mg 10/19/17 09:00 10/21/17 08:20 Asa PO 325 mg DAILY [facility] Administration Atorvastatin Calcium 40 mg 10/18/17 21:00 10/20/17 22:07 Lipitor PO 40 mg HS NOE Administration Atropine Sulfate 0.5 mg 10/21/17 10:03 Atropine IVP Q5M PRN Bradycardia Bisacodyl 10 mg 10/21/17 10:03 Dulcolax RECTALLY DAILY PRN Constipation Bumetanide 1 mg 10/21/17 14:00 Bumex 1 Mg Tab PO [id number] [facility] Carvedilol 6.25 mg 10/20/17 08:00 10/21/17 07:56 Coreg PO 6.25 mg BIDWM NOE Administration Folic Acid 0.5 mg 10/19/17 09:00 10/20/17 08:43 Folate PO 0.5 mg DAILY [facility] Administration Glipizide 10 mg 10/19/17 08:30 10/20/17 12:10 Glucotrol PO 10 mg 0830,1130 [facility] Administration Sodium Chloride 500 mls @ 75 mls/hr 10/21/17 10:18 Normal Saline IV .Q6H40M [facility] Lisinopril 5 mg 10/20/17 19:45 10/21/17 08:20 Prinivil PO 5 mg DAILY [facility] Administration Lorazepam 0.5 - 1 mg 10/21/17 10:03 Ativan PO Q4H PRN Anxiety Lorazepam 0.5 - 1 mg 10/21/17 10:03 Ativan Inj IVP Q4H PRN Anxiety Magnesium Hydroxide 30 ml 10/21/17 10:03 Mom PO DAILY PRN Constipation Metformin HCl 500 mg 10/18/17 21:00 10/20/17 08:45 Glucophage PO 500 mg 0800,2100 [facility] Administration Metformin HCl 1,000 mg 10/18/17 19:30 10/20/17 18:00 Glucophage PO 1,000 mg WS [facility] Administration Metoclopramide HCl 5 - 10 mg 10/21/17 10:03 Reglan IVP Q6H PRN Nausea &/or vomiting Morphine Sulfate 2 - 4 mg 10/21/17 10:03 Morphine Sulfate Inj IVP Q5M PRN Angina Morphine Sulfate 2 - 4 mg 10/21/17 10:03 Morphine Sulfate Inj IVP 10/22/17 10:02 Q2H PRN Pain Nitroglycerin 0.4 mg 10/21/17 10:03 Nitrostat SL Q5MIN3 PRN Angina Ondansetron HCl 4 mg 10/21/17 10:03 Zofran IVP Q6H PRN Nausea &/or vomiting Promethazine HCl 12.5 - 25 mg 10/21/17 10:03 Phenergan Inj IVP Q6H PRN Nausea &/or vomiting Sertraline HCl 25 mg 10/18/17 21:00 10/20/17 22:11 Zoloft PO Not Given BID NOE Sodium Chloride 10 - 80 ml 10/18/17 15:38 10/21/17 05:45 Iv Flush IVF 10 ml PRN PRN Administration [place] Spironolactone 25 mg 10/21/17 17:00 Aldactone 25 Mg PO [id number] Terbinafine HCl 250 mg 10/19/17 09:00 10/20/17 08:43 Lamisil PO 250 mg DAILY NOE Administration Discontinued Medications Generic Name Dose Route Start Last Admin Trade Name Freq PRN Reason Stop Dose Admin Amlodipine Besylate 10 mg 10/19/17 09:00 10/19/17 08:37 Norvasc PO 10 mg DAILY NOE Administration Furosemide 40 mg 10/18/17 16:27 10/18/17 16:59 Lasix 20 Mg/2 Ml IVP 10/18/17 16:28 40 mg O ONE Administration Furosemide 40 mg 10/19/17 06:00 10/21/17 05:45 Lasix 40 Mg/4 Ml IVP 40 mg 06,15 NOE Administration Glipizide 10 mg 10/18/17 21:00 Glucotrol PO BID [facility] Magnesium Sulfate/Dextrose 1 gm in 100 mls @ 100 mls/hr 10/19/17 05:44 08:16 Mag Sulf 1gm Premix IV 10/19/17 06:43 Infused O ONE Infusion Sodium Chloride 1,000 mls @ 75 mls/hr 10/21/17 08:00 Normal Saline IV .[id number] [facility] Lisinopril 10 mg 10/20/17 19:30 10/20/17 19:48 Prinivil PO Not Given DAILY [facility] Metformin HCl 1,000 mg 10/19/17 17:30 Glucophage PO WS [facility] Potassium Chloride 10 meq 10/19/17 05:44 10/19/17 06:28 Micro-K 10 Meq Capsule PO 10/19/17 05:45 10 meq O ONE Administration Potassium Chloride 40 meq 10/20/17 12:11 10/20/17 12:24 K-Dur 20 Meq Tablet PO 10/20/17 12:12 40 meq O ONE Administration Sotalol HCl 80 mg 10/18/17 21:00 Betapace PO BID [facility] Sotalol HCl 80 mg 10/18/17 19:30 10/19/17 17:38 Betapace PO 80 mg BID NOE Administration Results 10/18/17 16:12 10/21/17 04:28 Comprehensive Metabolic Panel 10/21/17 Range/Units 04:28 Sodium 142 (134-144) MEQ/L Potassium 3.8 (3.6-5) MEQ/L Chloride 101 (98-107) MEQ/L Carbon Dioxide 28 (22-30) MEQ/L BUN 20.0 (9-20) MG/DL Creatinine 0.8 (0.8-1.5) mg/dL Glucose 115 H (75-110) MG/DL Calcium 9.4 (8.4-10.2) MG/DL Albumin 3.8 (3.5-5.0) g/dL Intake and Output 10/20/17 10/21/17 10/21/17 22:59 06:59 14:59 Intake Total 200 / 200 Output Total 500 / 500 775 / 775 600 / 600 Balance -500 / -500 -575 / -575 -600 / -600 Intake: Oral 200 / 200 Output: Urine 500 / 500 775 / 775 600 / 600 Other: Urine Appearance Clear Clear Clear Urine Color Yellow Dark Yellow Dark Yellow Weight 87.7 kg Patient Weight 10/22/17 06:59 Weight 87.7 kg Assessment and Plan - Assessment and Plan s/p DAKOTA and HC no complications MARIANN 1 cm2 mean pressure gradient 21 mmHg 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 outpatient Dobutamine stress echo for induced pressure gradient will discuss with structural heart disease service Dr Degroot and pt's client support professional Dr Regalado. Hospital Course Summary Disclaimer: The visit summary below is not to be considered part of the above Progress Note. Hospital Course: 10/18/17 Admit, inpatient status. PCP: Dr. Judd CV: Believed to be Dr. Regalado CHF -Lasix 40 mg IV BID; follow electrolytes/renal function -daily weights, tele -trend trop -echo in am (Dr. Walker to read) -cont sotalol - has pacemaker Hypoxia -O2 -wean as able dyslipidemia/HTN -cont statin -may want to lower amlodipine dose in bebeto of staring iza-i given new-onset CHF DM2 -repeat A1c -trend sugars; check UA for proteinuria -cont metformin & glipizide -cardiac consistent carb diet Advanced directives -DPOA - thought to be his daughter -code status: DNR
[2017-10-21] MEDS: FOLIC ACID 1 MG TABLET PO SCH (12:33)
[2017-10-21] MEDS: TERBINAFINE 250 MG TABLET PO SCH (12:33)
[2017-10-21] MEDS: SERTRALINE 25 MG TABLET PO SCH (12:34)
[2017-10-21] MEDS ORDERED: BUMETANIDE 1 MG TABLET PO SCH (14:00)
[2017-10-21 14:45] VITALS: PULSE 61
--- NOTE | 2017-10-21 15:44 | Discharge Summary ---
Discharge Information Date of admission: 10/18/17 17:08 Anticipated date of discharge: 10/21/17 Attending Physician: Leydi Lopes MD Primary care physician: Miguel Judd DO Consults: Consulting Provider: Farida Walker Reason For Exam: abnormal rhythm - Discharge Diagnosis (1) Acute respiratory failure with hypoxia Status: Acute (2) Congestive heart failure Status: Acute Acute hypoxic respiratory failure Acute CHF, reduced ejection fraction Aortic stenosis-valve 1.1 cm Nonsustained ventricular tachycardia (30 seconds, asymptomatic on 10/19) Diabetes mellitus, type II Hyperlipidemia Hypertension - Procedures Procedures: Echocardiogram on 10/19/17: 1. CARDIAC CHAMBERS: The left atrium is mildly enlarged, measuring 4.2 cm. Right ventricle appears to be upper-normal range in size. The left ventricular measurement of 5.2 cm still falls within the upper-normal range. Aortic root diameter is normal. 2. LEFT VENTRICLE: Wall thickness is upper-normal range, measuring 10 mm in the posterior wall and 11 mm in the septal wall. Wall motion analysis is abnormal due to septal hypokinesis. LV systolic dysfunction of a mild degree is present. Ejection fraction is visually estimated at about 45%. Diastolic function assessment shows equalization of E and A waves. 3. VALVES: Aortic valve exhibits moderate calcification. Valve opening is restricted to a moderately severe degree. Mitral valve exhibits annular calcification. The anterior leaflet is moderately thickened and calcified. Valve opening is nevertheless preserved. Tricuspid valve structure and motion appear normal. Normal valve excursion. Pacemaker leads are seen in the right heart and appear to be unremarkable. 4. DOPPLER: Trace mitral regurgitation. Trace tricuspid regurgitation. Aortic stenosis is present. Peak flow velocity of 3.2 m/sec compared with 1.2 m /sec at the LVOT level. Peak and mean pressure gradient measures 41 and 23 mmHg. The calculated aortic valve area appears to be far from accurate. The aortic valve area by direct planimetry measures 1.1 cm2. There is also trivial pulmonic insufficiency present. 5. Systolic pulmonary artery pressure is estimated to be 25 mmHg. Central venous pressure is estimated to be normal. 6. No significant pericardial effusion, intracardiac masses, thrombi, vegetations or shunts. IMPRESSION 1. Mild left atrial enlargement. 2. Borderline concentric LVH. 3. Mild LV systolic dysfunction. EF estimated at 45%. 4. Moderately severe calcific aortic valve stenosis. 5. Calcified anterior mitral valve leaflet without significant valvular dysfunction. 6. Normal central venous pressure. Normal systolic PA pressure. 7. Dysrhythmia is present. ----- Transesophageal echocardiogram on 10/21/17: Formal report pending at discharge ----- Cardiac catheterization on 10/21/17: Formal report pending at discharge - Laboratory Labs: On 10/18/17 WBC 9.0, hemoglobin 15.3, platelets 208. Electrolytes and liver enzymes on admission were unremarkable, BUN 23, creatinine 0.7. ProBNP 4480; troponin 0.0.12-0.020-0.018-0.016 A1C 7.4 on date of admission 10/21/17 04:28 ABG on 10/21/17:7.395/49/77/29.8 95% saturated on 4 L - Radiology Radiology: Chest x-ray on 10/18/17 demonstrated pulmonary edema with small bilateral pleural effusions. Heart size was enlarged and left-sided pacemaker is present. Chest x-ray on 10/20/17 demonstrated improvement in pulmonary edema with minimal residual failure, pleural effusions or decreasing and there is improved aeration of the lower lobes bilaterally. History of Present Illness HPI: Paolo Juarez is a 77 y/o male who describes a 4-5 day hx of SOA with exertion. 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 He's had some wheezing and a cough but denies any other symptoms such as chest pain, nausea, dizziness/ lightheadedness. He has not had any recent illnesses, fevers, cough/cold, abdominal or GI/ complaints. He didn't even notice that his legs were swelling until he saw his PCP Dr. Judd for his SOA on 10/18/17. There, O2 sats were reportedly in the 80s and Dr. Judd recommended for him to go to the ED for evaluation. CXR showed moderate pulmonary edema and proBNP was elevated at 4480. Troponin was negative. He was placed on oxygen and was given furosemide 40 mg IV with good results. Dr. Melgoza was contacted and the patient was admitted to inpatient status Objective Vital signs: Temperature 98.4 F 10/21/17 07:15 Pulse Rate 61 10/21/17 12:00 Respiratory Rate 17 10/21/17 12:00 Blood Pressure 127/60 10/21/17 12:00 Pulse Oximetry 93 - 2L 10/21/17 12:00 NAD, alert, respirations nonlabored Good airflow, breath sounds clear, no wheezing present Regular rhythm, S1-S2, systolic murmur present right> left sternal border Abdomen soft, nontender, bowel sounds present +1 edema bilateral ankles Height/Weight/BMI: Height 1.78 m Weight 87.7 kg Body Mass Index 31.0 Hospital Course This is a general summary of the patient's hospital course. For more details refer to the complete medical record. Hospital course: 10/18/17 Admit, inpatient status. PCP: Dr. Judd CV: Believed to be Dr. Regalado CHF -Lasix 40 mg IV BID; follow electrolytes/renal function -daily weights, tele -trend trop -echo in am (Dr. Walker to read) -cont sotalol - has pacemaker Hypoxia -O2 -wean as able dyslipidemia/HTN -cont statin -may want to lower amlodipine dose in bebeto of staring iza-i given new-onset CHF DM2 -repeat A1c -trend sugars; check UA for proteinuria -cont metformin & glipizide -cardiac consistent carb diet Advanced directives -DPOA - thought to be his daughter -code status: DNR 10/19/17 CHF -New onset? -Lasix 40 mg IV BID; follow electrolytes/renal function -daily weights, I/O's, fluid restriction, tele -trop neg, echo in am (Dr. Walker to read) -cont sotalol - has pacemaker -[employer]it [employer] Hypoxia Resp. failure -2/2 to CHF -O2 as needed dyslipidemia/HTN -Amlodipine discontinued DM2 -cont metformin & glipizide -cardiac consistent carb diet Sustained Vtach -Pt stable and asymptomatic -Check electrolytes, order trop, discussed case with , moved pt to ICU -Sotalol on hold--> discontinued 10/20/17 CHF exacerbation, reduced ejection fraction -Lasix 40 mg IV BID; follow electrolytes/renal function -daily weights, I/O's, fluid restriction, tele -trop neg, BNP ~4500, echo report pending (Dr. Walker to read) - d/c'd Sotalol, currently on amio, BB, and spironolactone -Transit Bus Operator , will need to touch base soon -EF 45% Hypoxia Resp. failure -2/2 to CHF, much improved -CXR shows improvement, O2 requirement down, cont. to wean dyslipidemia/HTN -Stable; amlodipine discontinued and patient started on carvedilol and lisinopril DM2 -A1c 7.4 -Metformin on hold for cardiac catheterization Sustained Vtach Episode -Around 30 sec on 10/19 -Pt was stable and asymptomatic -Electrolytes wnls, trop neg, moved pt to ICU as a precaution -Cardiac catheterization in a.m. -Amiodarone initiated 200 mg twice a day 10/21/17 Mr. Juarez underwent cardiac catheterization and DAKOTA earlier today. Preliminary reports indicate bypass grafts are stable. Patient reports that he feels fine, oxygen has been titrated to 2 L with saturations of 92-94%. He denies dyspnea, wheezing, chest pain, palpitations, or GI symptoms. No arrhythmias have been reported by nursing today however overnight staff reported occasional runs of slow VT in "short bursts". Urine output is good and his weight is down 3.8 kg from admission with discharge weight of 87.7 kg today. Converted from IV Lasix to oral Bumex for diuresis following cardiac cath today. Dr. Walker has discussed findings with Dr. Regalado and tentatively scheduled patient for placement of left heart pacemaker lead on Tuesday however family history requested transfer to [facility] today to permit Dr. Regalado to direct care. I spoken with Dr. Regalado is nurse practitioner was helping coordinate transfer plans and has ranged a roommate [facility]. Dr. Regalado will be the admitting physician; patient will transfer by EMS on oxygen and with telemetry. Metformin remains on hold post cardiac cath; blood sugars 123-[address] Walker, case management, and nursing. Patient is medically stable for transportation. - Time spent with patient: discharge greater than 30 minutes Resuscitation Status: Do Not Resuscitate Discharge Plan - Discharge Disposition Discharge Date: 10/21/17 Disposition: 02 Acute Care Hosp, Other *Condition: Improved Reason For Visit (Visit label in EMR): CHF; I35.0; I47.2 - Discharge Medications *Discharge Medications: New Amiodarone [Pacerone] 200 mg PO BID tab Bumetanide Tab [Bumex 1 mg Tab] 1 mg PO [id number] tab Carvedilol [Coreg] 6.25 mg PO BIDWM tab Lisinopril [Prinivil] 5 mg PO DAILY tab Metformin [Glucophage] 1,000 mg PO WS tab Metformin [Glucophage] 500 mg PO 0800,2100 tab Nitroglycerin [Nitrostat] 0.4 mg SL Q5MIN3 PRN tab PRN Reason: Angina Spironolactone [Aldactone 25 mg] 25 mg PO [id number] tab Morphine Sulfate Inj 2 - 4 mg IVP Q5M PRN syringe PRN Reason: Angina Continue GlipiZIDE [Glucotrol] 10 mg PO BID Atorvastatin [Lipitor] 40 mg PO HS Aspirin [ASA] 325 mg PO DAILY Folic Acid 0.4 mg PO DAILY Terbinafine Tab [LamISIL] 250 mg PO DAILY Metformin [Glucophage] 1,000 mg PO WS #0 Discontinued Sotalol [Betapace] 80 mg PO BID Amlodipine [Norvasc] 10 mg PO DAILY Ramipril 10 mg PO DAILY No Action Metformin [Glucophage] 500 mg PO BID - Discharge Packet/Instructions *Diet: cardiac *Activity: do not raise more than 5 Lb. and for 2 week. no driving for 72 hrs *Pain Management/Treatment: Tylenol 650 mg every 6 hrs as needed *Wound Care: keep site dry ,clean and open to air Additional Instructions: Hold metformin for 48 hours post cardiac catheterization. *Expected Signs/Symptoms: mild discomfort *Notify Physician if: discharge redness or severe pain at the site , severe numbness and tingling in the foot turning cold or pale . call 911 if severe or sudden swelling , brisk or pulsating bleed from heart cath entry site. severe back or abdominal pain. severe numbness and tingling in the leg or toes . leg or foot turning cold or very pale. *During Business Hours Contact: *After Business Hours Contact: *Pending Lab/Results: No Pending Lab - Referrals/Follow Up *Referrals/Follow Up: Miguel Judd DO [Primary Care Provider] - (following discharge [facility]) - Patient Handouts Patient Handouts: Amiodarone (By mouth) (Cordarone, Pacerone), Carvedilol (By mouth) (Coreg, Coreg CR, Hypertenevide-12.5) - Dismissal Complete Discharge Instructions are:: Complete Physician Narrative - Narrative Attestation Narrative: Date: 10/21/17 Time: 4445
[2017-10-21] MEDS ORDERED: SPIRONOLACTONE 25 MG TABLET PO SCH (17:00)
[2017-10-21 17:38] VITALS: BP 135/63; RESP 21; TEMP 98.1; O2SAT 94
--- NOTE | 2017-10-24 10:04 | Cardiac Catheterization Report ---
DATE OF PROCEDURE 10/21/2017 PROCEDURES PERFORMED 1. Transfemoral right and left heart catheterization, LV gram, coronary angiogram, saphenous vein graft injection and SWARTZ arteriogram, aortic root injection. 2. Moderate conscious sedation, duration of 94 minutes. INDICATION 1. Pulmonary edema. 2. Aortic valve stenosis. 3. Ventricular tachycardia. 4. Coronary artery disease with past CABG x4, patient is diabetic. 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 Please refer to nursing notes for exact amounts given. This includes 2 mg of Versed and 50 mcg Fentanyl. I went ahead and under sterile technique injected lidocaine 1% by local infiltration in the right groin, amount of approximately 15 mL. I then went ahead and cannulated the right common femoral vein using modified Seldinger percutaneous technique. A 7- Anguillan venous sheath was introduced in place. I then cannulated the right common femoral artery using the same technique with a 6-Anguillan arterial sheath. Then I used a SWARTZ catheter JL4, JR4 and pigtail catheter as well as table J- wire and a straight wire to cross the aortic valve. With the JR4 catheter however as we were exchanging to the pigtail, the catheter just reaching the aortic valve pushed the wire out of the ventricle so I readvanced the pigtail catheter and was able to re-cross and LV gram was performed. Pressure gradient upon pull-back was recorded. A [place]-Sandra catheter thermodilution type, was advanced through the right common femoral vein sheath and right heart cath performed with multiple pressure readings and oxygen saturation measurements on blood samples obtained. Cardiac outputs were shot using thermodilution and compared with a Zoe cardiac output. Aortic valve area calculations were made. Procedure was well tolerated. There were no immediate complications, and a Mynx was deployed for hemostasis, manual pressure for the vein. FINDINGS 1. HEMODYNAMICS Right atrial pressure of 7/8 with a mean of 6 mmHg. RV pressure 39/2, mean of 7 mmHg. PA pressure of 38/18, mean of 22. PCWP 12/15 and a mean of 10 mmHg. LV 119/0, EDP of 6 mmHg. AO pressure 94/36, mean of 58 mmHg. Additional LV readings were 113/4 with an EDP of 6 mmHg. Cardiac output by Zoe was 4.42 L/ minute, using thermodilution was 4.49 L/minute. Calculated aortic valve area was 1.20. Mean pressure gradient was 21 mmHg. Across the aortic valve, peak to peak pressure gradient was 20 to 25 mmHg. 2. CORONARY ANGIOGRAM Left main coronary artery has a subtotal occlusion throughout its mid and distal segments leading to an LAD that gives multiple septal perforators before becoming totally occluded in the proximal to mid segment. The proximal LAD exhibits 90% stenosis, diagonal branch has 100% occlusion. LAD is totally occluded in the mid segment. All nature coronaries are heavily calcified throughout un their mid to distal segments. The left circumflex artery is totally occluded in its ostium. Right coronary artery is totally occluded proximally. SWARTZ graft to LAD is widely patent. Subclavian artery is patent. The run-off LAD is a small caliber vessel that tapers down distally, less than 1 mm. The run-off vessel in the mid LAD exhibits some distal small vessel disease but overall the run-off vessel appears to be preserved. 3. SAPHENOUS VEIN GRAFT Saphenous vein graft to the distal RCA is widely patent. Saphenous vein graft is inverted, Y-shaped although the common stalk is very short, the vein supplying the diagonal branch of 1-1.5 mm caliber is widely patent with a good run-off vessel. The RPDA is preserved, good caliber vessel of about 2 mm proximally and tapers down distally. This vein graft also supplies a 1-1.5 mm RPLB branch that fills in retrograde. The saphenous vein graft supplying the low obtuse marginal branch exhibits mild stenosis proximally, about 30%. 4. AORTOGRAM Limited aortogram using a hand injection, did not show any evidence of aneurysm or dissection in the proximal aorta. The aortic valve is heavily calcified especially the right coronary cusp which appears fixed. The valve opening appears to rely on the posterior cusps and appears to be restricted to a moderate to severe degree. 5. LV GRAM LV gram shows inferior wall akinesis. LV systolic dysfunction of a mild degree. Ejection fraction is estimated at 45-50%. Femoral arteriogram shows scattered plaquing and normal anatomy. IMPRESSION 1. Severe three vessel upper [place] coronary artery disease, 95% occlusion of the left main, 100% occlusion of the mid LAD and 100% occlusion of the proximal left circumflex artery and 100% occlusion of the proximal to mid RCA. 2. Patent bypasses x4 as described above, namely SWARTZ to LAD, inverted Y- shaped saphenous vein graft to the diagonal branch and distal LCX/OM branch and distal RCA. The saphenous vein graft to OM branch exhibits a 30% nonobstructive stenosis. 3. Distal disease consistent with diabetic vessels noted especially in the LAD and to a lesser degree other run-off vessels through the bypasses. 4. Very heavily calcified coronaries throughout. 5. Mild LV systolic dysfunction. Inferior wall akinesis, EF estimated at 45- 50%. 6. Normal filling pressure. LVEDP measured 5 mmHg. PCWP 10 mmHg. PA pressure slightly elevated at 38/18 mmHg. 7. At least moderate calcific aortic valve stenosis, as that area measured 1 cm2, mean pressure gradient 21 mmHg. Correlation also with surface echo and DAKOTA , (regarding the aortic valve structure and function). DISCUSSION AND PLAN 1. Dobutamine stress echocardiogram in [place] and if mean pressure gradient increases to 40 mmHg or more, patient would qualify for TAVR (again given patient's pulmonary edema). Patient has an established relationship with Dr. Regalado whom I have contacted and he is going to take it from here. DANNY
--- NOTE | 2017-10-24 10:56 | Transesophageal Echocardiogram ---
DATE OF PROCEDURE 10/21/2017 INDICATION Aortic valve stenosis. Recent acute pulmonary edema. Heavily calcified aortic valve. PROCEDURE PERFORMED 1. Transesophageal echocardiogram. 2. Moderate conscious sedation, duration of about 20 minutes. DESCRIPTION OF PROCEDURE After indications, alternatives, risks and benefits of DAKOTA were discussed with the patient in detail, he agreed to proceed. He was brought in to the Cardiac Cath Laboratory, received IV sedation of Versed 2 mg and Fentanyl 25 mcg initially. For total amounts given, please refer to nursing notes. I advanced the Omniprobe to the stomach after Cetacaine Laie to the oropharynx. Transgastric lower and mid transesophageal images of good quality were obtained. Procedure was well tolerated. There were no immediate complications. FINDINGS 1. CARDIAC CHAMBERS. Mild left atrial enlargement is present. All other cardiac chambers appear normal in size. Visualized portion of the thoracic aorta exhibits scattered plaquing without aneurysm or dissection. Pacemaker leads seen in the right heart appear to be unremarkable without any evidence of vegetation. Interatrial septum appears intact without evidence of shunt on color flow Doppler and bubble study. Left atrial appendage examined closely and no evidence of clots or smoke sign. Flow velocity is preserved, about 50- 60 cm/second. 2. LV FUNCTION. Borderline LVH is present. Hypokinesis of inferior and septal [place] noted. LV systolic dysfunction of a mild degree is present. Ejection fraction is estimated about 45%. 3. VALVES. Aortic valve exhibits moderately heavy calcification of the trileaflet structure. Valve opening appears restricted to a moderate to severe degree visually. Direct planimetry measured 0.95-0.98 cm2. Mitral valve exhibits annular calcification and sclerotic leaflet changes especially the anterior exhibits calcification. Valve opening appears normal. Tricuspid valve structure and motion appear normal with normal valve excursion. 4. DOPPLER. Doppler shows mitral regurgitation, at least mild (1-2+), trace tricuspid regurgitation. Turbulent flow at the aortic valve level and beyond with a flow velocity at least 3.5 m/sec. It should be noted that the theta angle is too for accurate alignment or velocity measurement to take place. No evidence of pericardial effusion, intracardiac masses, thrombi, vegetations or shunts. IMPRESSION 1. Mild left atrial enlargement. 2. Borderline LVH. LV ejection fraction of about 45%, with hypokinesis involving the inferior and septal [place] tor[place]. 3. Moderate to severe calcific aortic valve stenosis with a valve area by direct planimetry of 0.98 cm2 and peak flow velocities of over 3.5 m/sec. 4. Mild mitral regurgitation with mitral valve leaflet sclerosis and calcification but no significant stenosis. MTDD
== END 2017-10-21 16:55 | disposition short-term general hospital (02) | DRG 286 ==
LOC: ED 15:18 → SUATTDRO 17:08 → EDHOLD 17:08 → MED 18:30 → CCU 10-19 15:44
PROVIDERS: ADMIT Internal Medicine; ATTEND Internal Medicine